=== PATIENT | male | born 1945 | race Caucasian/White ===

== ENCOUNTER 2016-08-27 12:13 | Emergency (ER) | payer OTHER ==
[2016-08-27 12:48] VITALS: RESP 16; TEMP 96.7
[2016-08-27] MEDS ORDERED: Sodium Chloride 0.9% 1,000 ML PRIMARY IV ONE (12:49)
[2016-08-27] MEDS ORDERED: MECLIZINE 25 MG CHEWABLE TABLET PO ONE (12:49)
[2016-08-27] MEDS ORDERED: LORazepam 2 MG/1 ML VIAL IVP ONE (12:51)
--- NOTE | 2016-08-27 12:53 | PDOC ---
Gen Adult / Medical Screen HPI - General Chief Complaint: General Medical Stated Complaint: dizzy Date Seen by Provider: 08/27/16 Time Seen by Provider: 12:48 Source: POSITIVE: Patient Exam Limitations: POSITIVE: No limitations Nurse's Notes Reviewed & Considered: Yes - Indicators Temperature Between 95 and 101 Degrees: Yes Respirations Between 12 and 20: Yes Blood Pressure Between 100-165 (sys) and 60-100 (hernandez): Yes Pulse Range Between 60-105 (100 for age > 60 years): Yes Severe Pain (Greater than 5/10 Reported): No Chest or Abdominal Pain: No Inability to Walk: No Pt Reports Active High Risk Cond. (TB/Hepatitis/HIV/Chemo): No Abnormal Mental Status: No - History of Present Illness Initial Comments: Patient comes in today not feeling well. Patient was lifting weights today on an inclined leg press with approximately 90 pounds. He was in the middle of a set of 30 reps when he felt dizzy and not well. He stopped his weightlifting the dizziness resolved. 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 He came in for further evaluation. He denies any headache, vision changes, shortness of breath, cough, chest pain, no nausea vomiting or diarrhea, no fever or chills or sweats, no rashes, no myalgias no joint aches. Body Location Affected: REPORTS: Head Timing: REPORTS: Abrupt Duration: 1 hour Similar Symptoms Previously: No Recent Care Received: REPORTS: Denies Any Prior Injuries Related to Current Complaint?: No - Patient Home Medications Home Medications: Home Medications Finasteride 1 tab ORAL QD tab 12/20/10 Doxazosin Mesylate 1 tab PO DAILY tab 11/16/12 Ibuprofen 3 tab PO Q6H PRN tab 11/16/12 Omeprazole 1 cap PO DAILY cap 11/16/12 Cholecalciferol (Vitamin D3) [Vitamin D3] 1 cap PO BEDTIME cap 02/24/15 - Patient Allergies Allergies/Adverse Reactions: Allergies Allergy/AdvReac Type Severity Reaction Status Date / Time No Known Allergies Allergy Verified 08/27/16 12:20 Past Medical History - heen HEENT History: Dentures/Partials Cardiovascular History: Denies History Respiratory History: Denies History Gastrointestinal History: GERD Genitourinary History: Other (please comment) Additional Genitourinary History: RETENTION. ENLARGED PROSTATE Endocrine History: Denies History Musculoskeletal History: Denies History Prosthesis or Implant: No Additional Neurological History: HX PANIC ATTACK Blood Disorders: Denies History Psychiatric History:  Additional Psychiatric History: HX OF PANIC ATTACK X 1 History of Sexually Transmitted Diseases: No Cancer History: Denies History In Past Year Been Physically Harmed or Verbally Threatened: No History of MDRO: No Tobacco Use: Never Smoker Alcohol Use: Occasionally Substance Use Type: None Previous Surgical History: Yes Type / Date of Surgery: APPY AGE 7/ COLONOSCOPY/ FLEX SIG /EGD Anesthesia Reactions: No Malignant Hyperthermia: No Significant Family History: Diabetes ROS - Limitations ROS Limitations: No Limitations Constitution: REPORTS: Denies Symptoms Cardiovascular: REPORTS: Denies Cardiac Symptoms Respiratory: REPORTS: Denies Resp Symptoms Neurological: REPORTS: Dizziness Gastrointestinal: REPORTS: Denies GI Symptoms Endocrine: REPORTS: Denies Symptoms Musculoskeletal: REPORTS: Denies MS Symptoms Genitourinary: REPORTS: Denies Symptoms Eyes: REPORTS: Denies Symptoms ENT: REPORTS: Denies Symptoms Skin: REPORTS: Denies Skin Symptoms Lympathic: REPORTS: Denies Lympathic Symptoms Immunologic: POSITIVE: Denies Symptoms Psychiatric: POSITIVE: Denies Psych Symptoms Gen Adult/Medical Screen Exam - General Appearance General Appearance: POSITIVE: Alert, Cooperative, No Acute Distress, No Evidence of Trauma - HEENT HEENT: POSITIVE: Head Inspection Nml, Eyes Inspection Nml, Ears Inspection Nml, Nose Inspection Nml, Oral/Dental Inspect. Nml, Pharynx Inspect. Nml, PERRL, EOMI - Pupils Pupil Size: 4 mm: Bilateral - Neck Neck: POSITIVE: Normal Inspection, Thyroid Normal - Respiratory Respiratory: POSITIVE: No Respiratory Distress, Breath Sounds Normal, Chest Non- Tender - Cardiovascular Cardiovascular: POSITIVE: Regular Rate & Rhythm, No Murmur, No Gallop, PMI Normal Peripheral Pulses: Radial (R): 3+, Radial (L): 3+ - Abdomen Abdomen: Soft: (All Quadrants), Normal Bowel Sounds: (All Quadrants), Denies Tenderness: (All Quadrants) - Back Back: POSITIVE: Normal Inspection - Neurological / Psychological Mental Status: POSITIVE: Mood Normal, Affect Normal Orientation: POSITIVE: Oriented x 3, Uncooperative Reflexes: Patellar (R): 4+, Patellar (L): 4+, Radial (R): 4+, Radial (L): 4+ - Skin Skin: POSITIVE: Warm, Dry, No Rash, Cyanosis - Extremities Extremity: Non-Tender: (All Extremities), Normal ROM: (All Extremities), Normal Inspection: (All Extremities) Procedures - Laceration/Wound Repair Did patient have a laceration repair: No Gen Adlt/Medical Scrn Progress - Results Reviewed by me Lab Results Reviewed: Yes Lab Results:: Laboratory Results 08/27/16 Range/Units 13:20 WBC 5.18 (4.8-10.8) 10^3/uL RBC 4.42 L (4.70-6.10) 10^6/uL Hgb 14.5 (14.0-18.0) g/dL Hct 42.2 (42.0-52.0) % MCV 95.5 H (80-90) FL MCH 32.8 H (27-31) PG MCHC 34.4 (33-37) g/dL RDW Std Deviation 42.9 (39-50) fL RDW Coeff of Geovani 12.4 (11.5-14.5) % Plt Count 212 (140-350) 10*3/uL MPV 9.6 (7.4-12.2) FL Immature Gran % (Auto) 0.2 (0-5) % Neut % (Auto) 71.1 (50-80) % Lymph % (Auto) 20.7 (10-50) % Vermilion % (Auto) 6.8 (5-15) % Eos % (Auto) 1.0 (0-8) % Baso % (Auto) 0.2 (0-1) % Immature Gran # (Auto) 0.01 10*3/UL Neut # (Auto) 3.69 10*3/UL Lymph # (Auto) 1.07 10*3/uL Vermilion # (Auto) 0.35 (0.3-0.8) 10*3/UL Eos # (Auto) 0.05 10*3/UL Baso # (Auto) 0.01 10*3/UL WBC Morphology Comment Normal morphology (NORM) Plt Morphology Comment Normal morphology (NORM) RBC Morph Comment Normal morphology (NORM) Sodium 140 (135-145) meq/L Potassium 3.7 L (3.8-5.2) meq/L Chloride 105 (98-112) meq/L Carbon Dioxide 26 (23-33) meq/L Anion Gap 9 (5-20) BUN 24 H (7-22) mg/dL Creatinine 0.8 (0.70-1.50) mg/dL Estimated GFR > 60 (>60 ml/min/1.73m(2)) BUN/Creatinine Ratio 30.00 H (6-20) Glucose 101 (78-110) mg/dL Calculated Osmolality 293.0 H (267-292) mOsm/kg Calcium 9.0 (8.7-10.7) mg/dL Magnesium 1.8 (1.6-2.4) mg/dL Total Bilirubin 0.4 (0.3-1.2) mg/dL AST 21 (21-57) IU/L ALT 30 (21-72) IU/L Alkaline Phosphatase 67 (38-126) IU/L Total Protein 6.6 (6.1-8.0) g/dL Albumin 3.9 (3.5-4.8) g/dL Globulin 2.7 (2.50-4.10) g/dL Albumin/Globulin Ratio 1.40 (1.3-2.0) mg/g EKG Interpretation:: POSITIVE: Normal Sinus Rhythm, Normal Rate, Normal QRS, Normal ST/T - Patient's Progress Pain Medication Addressed: POSITIVE: Not Applicable Re-Examine Time: 13:52 Status: POSITIVE: Improved MDM / ED Course: The patient was examined, an IV started, blood drawn and sent to the lab for studies, EKG was obtained. Patient received a liter of normal saline bolused, meclizine, and 1/2 mg of Ativan. His symptoms significantly improved. Laboratory findings: Complex metabolic panel reveals elevated BUNs consistent with dehydration. EKG shows normal sinus rhythm per my interpretation. Assessment: Dizziness related to dehydration. Plan: Discharge home increased water intake. Follow up with primary care physician. - Consult Counseled: POSITIVE: Patient, Family, RE: Lab Results, RE: DX Patient Care Time - Estimated PCT Patient Care Time (In Minutes): 15 Vital Signs - Recent Vital Signs Vital Signs: Vital Signs (Last 8 hours) Temp Pulse Resp BP Pulse Ox 08/27/16 12:20 96.7 F L 87 16 158/87 94 - VS Reviewed Vital Signs Reviewed: Yes Discharge Clinical Impression: Dehydration Discharge Disposition: Discharged to Home Condition: Good Patient Instructions Given at Discharge: Dehydration (ED) Follow Up With: JOSE ALFREDO BERTRAND [Primary Care Provider] -
[2016-08-27 13:38] LABS: BASOPHILS # (AUTO) 0.01 10*3/UL; BASOPHILS % (AUTO) 0.2 % (0-1); HEMATOCRIT 42.2 % (42.0-52.0); HEMOGLOBIN 14.5 g/dL (14.0-18.0); IMM GRAN % (AUTO) 0.2 % (0-5); IMM GRAN# (AUTO) 0.01 10*3/UL; LYMPHOCYTES # (AUTO) 1.07 10*3/uL; LYMPHOCYTES % (AUTO) 20.7 % (10-50); MEAN CORPUSCULAR HEMOGLOBIN 32.8 PG (27-31); MEAN CORPUSCULAR HGB CONC 34.4 g/dL (33-37); MEAN PLATELET VOLUME 9.6 FL (7.4-12.2); MONOCYTES # (AUTO) 0.35 10*3/UL (0.3-0.8); MONOCYTES % (AUTO) 6.8 % (5-15); NEUTROPHILS # (AUTO) 3.69 10*3/UL; NEUTROPHILS % (AUTO) 71.1 % (50-80); RDW COEFFICIENT OF VARIATION 12.4 % (11.5-14.5); RED BLOOD COUNT 4.42 10^6/uL (4.70-6.10); WHITE BLOOD COUNT 5.18 10^3/uL (4.8-10.8)
[2016-08-27 13:40] LABS: ASPARTATE AMINO TRANSFERASE 21 IU/L (21-57); BILIRUBIN,TOTAL 0.4 mg/dL (0.3-1.2); BLOOD UREA NITROGEN 24 mg/dL (7-22); CHLORIDE 105 meq/L (98-112); CREATININE 0.8 mg/dL (0.70-1.50); EST GLOMERULAR FILTRATION > 60 (>60 ml/min/1.73m(2)); GLUCOSE 101 mg/dL (78-110); MAGNESIUM 1.8 mg/dL (1.6-2.4); POTASSIUM 3.7 meq/L (3.8-5.2); SODIUM 140 meq/L (135-145); TOTAL PROTEIN 6.6 g/dL (6.1-8.0)
[2016-08-27 13:42] LABS: PLATELET MORPHOLOGY COMMENT NORMAL MORPHOLOGY (NORM)
--- NOTE | 2016-08-27 17:53 | EKG ---
[address] [address] Measurements Intervals [place] Rate: 72 P: 61 MN: 164 QRS: -30 QRSD: 100 T: 50 QT: 385 QTc: 410 Interpretive Statements SINUS RHYTHM LEFT AXIS DEVIATION Compared to ECG 03/19/2014 23:56:12 Sinus arrhythmia no longer present Electronically Signed On 08-28-16 14:06:43 MST by Víctor Pardo [email or web address]
== END 2016-08-27 14:16 | disposition home or self-care (01) ==
LOC: ER 12:13
DX: E86.0 Dehydration (principal); R42 Dizziness and giddiness
CPT/HCPCS: 80053; 83735; 85025; 93005; 93010; 96361; 96374; 99283; J2060; J7030

== ENCOUNTER → 2016-12-10 | Outpatient (CLI) | payer OTHER | LOC: LAB 08:32 | PROVIDERS: ATTEND Urology | DX: N40.1 Benign prostatic hyperplasia with lower urinary tract symptoms (principal) | CPT/HCPCS: 36415; 84153 ==